=== PATIENT | female | born 1965 | race Caucasian/White ===

== ENCOUNTER 2017-01-13 13:13 | Emergency (ER) | payer OTHER ==
[~2017-01-13 13:13] MED LIST: ACYCLOVIR PO; AMITRYPTYLINE PO; AUGMENTIN875 MG PO; BENTYL20 MG PO; DIAZEPAM PO; DOXYCYCLINE PO; ESTRACE PO; ESTRACE2 MG PO; FIORICET 50-321 EACH PO; FLEXERIL10 MG PO; HYDROCODON-ACE1 EAC5 PO; HYDROCODON-ACE1 EAC7 PO; IBUPROFEN PO; INDERAL LA120 MG PO; LEVAQUIN PO; LODINE XL PO; LORTAB 101 TAB 10/5 PO; MEDROL PO; MEDROL4 MG/DOSE- PO; NORCO 10/325 TA1 TAB PO; PERCOCET5/325 PO; PHENERGAN SUPP25 MG PR; PHENERGAN12.5 MG/SU PR; PHENERGAN25 M1 PO; PHENERGAN25 MG PO; PROPRANOLOL PO; PROZAC PO; PROZAC40 MG PO; ROBAXIN500 MG PO; SEROQUEL50 MG PO; TRAZODONE HCL150 MG PO; VOLTAREN50 MG PO; XANAX0.5 MG PO; ZOFRAN ODT4 MG PO; ZOFRANODT PO
[2017-01-13 13:25] LABS: URINE APPEARANCE CLEAR; URINE BILIRUBIN NEG (NEG); URINE COLOR YELLOW; URINE GLUCOSE NEG (NORM); URINE KETONE NEG (NEG); URINE LEUKOCYTE ESTERASE NEG (NEG); URINE NITRATE NEG (NEG); URINE PROTEIN NEG (NEG); URINE SOURCE CLEAN CATCH; URINE SPECIFIC GRAVITY <=1.005 (1.003-1.035); URINE UROBILINOGEN 0.2 MG/DL (NORM)
[2017-01-13 13:27] LABS: INFLUENZA A NEG (NEG); INFLUENZA B NEG (NEG)
[2017-01-13 13:33] LABS: MICRO INDICATED? NO; URINE BLOOD NEG (NEG)
[2017-02-21] MEDS ORDERED: ABILIFY5 MG PO (20:54)
[2017-04-21] MEDS ORDERED: HYDROCODON-ACE1 EAC7 PO (00:34)
[2017-04-21] MEDS ORDERED: ZOFRAN PO (00:35)
[2017-04-21] MEDS ORDERED: PHENERGAN25 M1 PO (11:33)
[2017-04-21] MEDS ORDERED: SEROQUEL PO (12:40)
[2017-04-21] MEDS ORDERED: PROZAC PO (12:40)
[2017-04-21] MEDS ORDERED: TRAZODONE PO (12:41)
[2017-04-21] MEDS ORDERED: ESTRACE2 M1 PO (20:56)
== END 2017-01-13 13:46 | disposition home or self-care (01) ==
LOC: SED 13:13
PROVIDERS: Physician Assistant
DX: B34.9 Viral infection, unspecified (principal); M54.5 Low back pain; F43.10 Post-traumatic stress disorder, unspecified; F17.200 Nicotine dependence, unspecified, uncomplicated; Z90.710 Acquired absence of both cervix and uterus; Z90.49 Acquired absence of other specified parts of digestive tract
CPT/HCPCS: 81003; 87651; 87804; 99283

== ENCOUNTER 2017-02-21 21:11 | Emergency (ER) | payer OTHER ==
--- NOTE | ~2017-02-21 | CT2 ---
[facility] A Service of [facility] RADIOLOGY TEXT RESULTS PATIENT: SOPHIE WILL LOCATION: SED : 63 UNIT #: [id number] AGE: [address]: Iraj Guardado MD SEX: F ORDER DR: [id number] [place] [id number] E MR#: [id number] Acc #: [id number] NAME: SOPHIE WILL : 1965 SEX: F STUDY DATE/TIME: 02/21/2017 23:06 UNIT: SED ROOM: STUDY DESCRIPTION: CT Abd and Pelv W Cont Attending Physician: Iraj Guardado M.D. Ordering Physician: Iraj Guardado M.D. Primary Care Physician: Paul Cr M.D. MEDICAL IMAGING REPORT This report is preliminary unless electronic signature is present. EXAM CT abdomen and pelvis with contrast DATE 02/21/2017 HISTORY 51-year-old female abdominal pain and cramping with rectal bleeding since last evening. Elevated white blood cell count. Previous appendectomy, hysterectomy, cholecystectomy. COMPARISON CT abdomen and pelvis without contrast 07/04/2016. PROCEDURE 5 mm axial images from lung bases through lesser trochanters after intravenous and enteric contrast administration. Sagittal and coronal reformatted images were obtained. This CT exam was performed with one or more of the following radiation dose reduction techniques: automatic control, adjustment of mA and/or kV according to patient size, and iterative reconstruction. FINDINGS ABDOMEN FINDINGS: Emphysematous changes are present in the lung bases. Some of images through the lung bases and the abdomen are degraded by patient motion. Cholecystectomy. Liver, spleen, pancreas, adrenals and kidneys appear unremarkable. History of appendectomy. No bowel inflammatory change or evidence of high-grade bowel obstruction on this examination. No free air or free fluid or pathologic adenopathy is seen. PELVIS FINDINGS: Urinary bladder, rectum are normal. Hysterectomy changes. [facility] A Service [facility] RADIOLOGY TEXT RESULTS PATIENT: SOPHIE WILL LOCATION: SED : 63 UNIT #: [id number] AGE: [address]: Iraj Guardado MD SEX: F ORDER DR: Advanced loss of disc height at L3-4. No acute or suspicious osseous abnormalities are identified. IMPRESSION 1. No acute findings are seen within the abdomen or pelvis to explain the patient's pain. 2. Cholecystectomy, hysterectomy, appendectomy. 3. Emphysematous changes in the lung bases. Dictated by... Giovana Banks M.D. THIS IS AN ELECTRONICALLY VERIFIED REPORT Giovana Banks M.D. at 02/22/2017 4:20 AM ELI/sean TD: 02/22/2017 03:39 JOB #: [id number] MEDICAL IMAGING REPORT Page 1 of 1
[~2017-02-21 21:11] MED LIST changes: +ABILIFY5 MG PO
[2017-02-21 22:01] LABS: MICRO INDICATED? NO; URINE APPEARANCE CLEAR; URINE BILIRUBIN NEG (NEG); URINE BLOOD NEG (NEG); URINE COLOR YELLOW; URINE GLUCOSE NEG (NORM); URINE KETONE NEG (NEG); URINE LEUKOCYTE ESTERASE NEG (NEG); URINE NITRATE NEG (NEG); URINE PH 5.5 (5-8); URINE PROTEIN NEG (NEG); URINE SOURCE CLEAN CATCH; URINE SPECIFIC GRAVITY <=1.005 (1.003-1.035); URINE UROBILINOGEN 0.2 MG/DL (NORM)
[2017-02-21 22:03] LABS: BASOPHIL# 0.1 X10e3 (0-0.3); BASOPHIL% 0.9 % (0-2.5); EOSINOPHIL# 0.3 X10e3 (0-0.7); EOSINOPHIL% 2.3 % (0.0-7.0); HEMATOCRIT 38.4 % (35.0-45.0); HEMOGLOBIN 12.7 gm/dL (12.0-16.0); LYMPHOCYTE# 4.7 X10e3 (1.0-3.5); MEAN CELL VOLUME 95.5 FL (83-96); MEAN CORPUSCULAR HEMOGLOBIN 31.7 PG (28-34); MEAN CORPUSCULAR HGB CONC 33.2 g/dL (30-36); MEAN PLATELET VOLUME 6.5 FL (6.5-11.5); MONOCYTE# 0.7 X10e3 (0-1.0); MONOCYTE% 5.3 % (3.0-12.0); NEUTROPHIL# 6.7 X10e3 (1.5-7.1); NEUTROPHIL% 53.5 % (40-75); PLATELET COUNT 442 X10e3 (140-420); RED BLOOD COUNT 4.02 X10e (3.90-5.30); RED CELL DISTRIBUTION WIDTH 12.6 % (11.0-15.5); WHITE BLOOD COUNT 12.4 X10e3 (4.0-10.5)
[2017-02-21 22:06] LABS: DIFF IND NO
[2017-02-21 22:11] LABS: INR 0.9; PROTHROMBIN TIME (PATIENT) 10.6 SECONDS (9.5-12.4)
[2017-02-21 22:18] LABS: PARTIAL THROMBOPLASTIN TIME 26.4 SECONDS (25.6-38.1)
[2017-02-21 22:21] LABS: ALBUMIN SERUM 3.8 g/dL (3.5-5.0); BILIRUBIN, DIRECT 0.1 mg/dL (0.0-0.2); BILIRUBIN,INDIRECT 0.2 mg/dL (0.0-0.9); BILIRUBIN,TOTAL 0.3 mg/dL (0.2-2.0); BUN/CREATININE RATIO 18.75; CALCIUM SERUM 8.8 mg/dL (8.4-10.2); CREATININE SERUM 0.8 mg/dL (0.6-1.4); GLOM FILT RATE Estimated 84.2 mL/min (>60); POTASSIUM 3.9 mmol/L (3.5-5.1); PROTEIN TOTAL SERUM 7.5 g/dL (6.0-8.3)
[2017-04-21] MEDS ORDERED: HYDROCODON-ACE1 EAC7 PO (00:34)
[2017-04-21] MEDS ORDERED: ZOFRAN PO (00:35)
[2017-04-21] MEDS ORDERED: PHENERGAN25 M1 PO (11:33)
[2017-04-21] MEDS ORDERED: PROZAC PO (12:40)
[2017-04-21] MEDS ORDERED: SEROQUEL PO (12:40)
[2017-04-21] MEDS ORDERED: TRAZODONE PO (12:41)
[2017-04-21] MEDS ORDERED: ESTRACE2 M1 PO (20:56)
== END 2017-02-22 00:41 | disposition home or self-care (01) ==
LOC: SED 21:11
PROVIDERS: Emergency Medicine
DX: R10.9 Unspecified abdominal pain (principal); R11.0 Nausea; K21.9 Gastro-esophageal reflux disease without esophagitis; J44.9 Chronic obstructive pulmonary disease, unspecified; I73.9 Peripheral vascular disease, unspecified; Z90.49 Acquired absence of other specified parts of digestive tract; Z90.710 Acquired absence of both cervix and uterus; F17.200 Nicotine dependence, unspecified, uncomplicated
CPT/HCPCS: 36415; 74177; 80048; 80076; 81003; 83605; 83690; 85025; 85610; 85730; 87040; 96361; 96372; 96374; 96375; 99284; J0500; J1170; J2270; J2405; Q9967

== ENCOUNTER 2017-03-12 20:04 | Emergency (ER) | payer OTHER ==
--- NOTE | ~2017-03-12 | CR2 ---
[facility] A Service of [facility] RADIOLOGY TEXT RESULTS PATIENT: SOPHIE WILL LOCATION: SED : 63 UNIT #: [id number] AGE: [address]: Akshat Sweet MD SEX: F ORDER DR: [id number] [address] [address] [id number] E MR#: [id number] Acc #: [id number] NAME: SOPHIE WILL : 1965 SEX: F STUDY DATE/TIME: 03/12/2017 22:12 UNIT: SED ROOM: STUDY DESCRIPTION: CR Abdomen Acute Series Attending Physician: Akshat Sweet M.D. Ordering Physician: Akshat Sweet M.D. Primary Care Physician: Paul Cr M.D. MEDICAL IMAGING REPORT This report is preliminary unless electronic signature is present. EXAM Acute abdominal series HISTORY 51-year-old female, abdominal pain, nausea, vomiting. COMPARISON 07/05/2013 FINDINGS PA upright view of the chest demonstrates coarse parenchymal markings suggesting underlying fibrosis or interstitial disease. No acute airspace disease or consolidation, no effusions. No free air noted under the diaphragms. Supine and upright views of the abdomen demonstrates nonobstructive bowel gas pattern. Surgical clips in the right upper quadrant consistent with prior cholecystectomy. No organomegaly. Mild degenerative changes lumbar spine. IMPRESSION 1. Mild hyperinflation and coarse parenchymal changes could reflect underlying emphysema, developing fibrosis. No acute cardiopulmonary abnormality. 2. Nonobstructive bowel gas pattern. Surgical clips in the right upper quadrant from prior cholecystectomy. Dictated by... Octavio Goetz M.D. THIS IS AN ELECTRONICALLY VERIFIED REPORT Octavio Goetz M.D. at 03/13/2017 2:05 PM JMS/psc [facility] A Service [facility] RADIOLOGY TEXT RESULTS PATIENT: SOPHIE WILL LOCATION: SED : 63 UNIT #: [id number] AGE: [address]: Akshat Sweet MD SEX: F ORDER DR: TD: 03/12/2017 23:23 JOB #: [id number] MEDICAL IMAGING REPORT Page 1 of 1
[2017-03-12 21:05] LABS: BASOPHIL# 0.1 X10e3 (0-0.3); BASOPHIL% 0.9 % (0-2.5); EOSINOPHIL# 0.3 X10e3 (0-0.7); EOSINOPHIL% 1.6 % (0.0-7.0); HEMATOCRIT 36.8 % (35.0-45.0); HEMOGLOBIN 12.4 gm/dL (12.0-16.0); LYMPHOCYTE% 26.2 % (17.0-45.0); MEAN CELL VOLUME 96.1 FL (83-96); MEAN CORPUSCULAR HEMOGLOBIN 32.4 PG (28-34); MEAN CORPUSCULAR HGB CONC 33.8 g/dL (30-36); MEAN PLATELET VOLUME 6.7 FL (6.5-11.5); MONOCYTE# 0.8 X10e3 (0-1.0); NEUTROPHIL# 10.2 X10e3 (1.5-7.1); NEUTROPHIL% 66.3 % (40-75); PLATELET COUNT 336 X10e3 (140-420); RED BLOOD COUNT 3.83 X10e (3.90-5.30); RED CELL DISTRIBUTION WIDTH 13.4 % (11.0-15.5); WHITE BLOOD COUNT 15.4 X10e3 (4.0-10.5)
[2017-03-12 21:06] LABS: DIFF IND NO
[2017-03-12 21:22] LABS: ALBUMIN SERUM 3.7 g/dL (3.5-5.0); BILIRUBIN, DIRECT 0.3 mg/dL (0.0-0.2); BILIRUBIN,INDIRECT 0.8 mg/dL (0.0-0.9); BILIRUBIN,TOTAL 1.1 mg/dL (0.2-2.0); BUN/CREATININE RATIO 8.75; CALCIUM SERUM 8.9 mg/dL (8.4-10.2); CREATININE SERUM 0.8 mg/dL (0.6-1.4); GLOM FILT RATE Estimated 84.2 mL/min (>60); POTASSIUM 3.7 mmol/L (3.5-5.1); PROTEIN TOTAL SERUM 7.2 g/dL (6.0-8.3)
[2017-04-21] MEDS ORDERED: HYDROCODON-ACE1 EAC7 PO (00:34)
[2017-04-21] MEDS ORDERED: ZOFRAN PO (00:35)
[2017-04-21] MEDS ORDERED: PHENERGAN25 M1 PO (11:33)
[2017-04-21] MEDS ORDERED: SEROQUEL PO (12:40)
[2017-04-21] MEDS ORDERED: PROZAC PO (12:40)
[2017-04-21] MEDS ORDERED: TRAZODONE PO (12:41)
[2017-04-21] MEDS ORDERED: ESTRACE2 M1 PO (20:56)
== END 2017-03-12 23:40 | disposition home or self-care (01) ==
LOC: SED 20:04
PROVIDERS: Emergency Medicine
DX: K58.9 Irritable bowel syndrome, unspecified (principal); F32.9 Major depressive disorder, single episode, unspecified; F17.200 Nicotine dependence, unspecified, uncomplicated; Z90.49 Acquired absence of other specified parts of digestive tract; Z90.710 Acquired absence of both cervix and uterus; Z88.8 Allergy status to other drugs, medicaments and biological substances; Z79.899 Other long term (current) drug therapy
CPT/HCPCS: 36415; 74022; 80048; 80076; 83690; 85025; 86677; 96361; 96374; 96375; 96376; 99284; J1170; J1200; J1885; J2405; J2765

== ENCOUNTER → 2017-04-02 | Day surgery (SDC) | payer OTHER ==
[~2017-04-02] MED LIST changes: +ACETAMINOPHEN PO; +DILAUDID4 MG PO; +ESTRACE2 M1 PO; +FAMVIR500 MG PO; +NILSTAT PO; +SEROQUEL PO; +TRAZODONE PO; +ZOFRAN PO
--- NOTE | ~2017-04-02 | OR ---
Unit #: [id number] #: [id number] Patient: SOPHIE WILL [id number] [address] [address] [id number] O MR#: [id number] NAME: SOPHIE WILL ROOM: Date of Procedure: 04/02/2017 Admission Date: 04/02/2017 Surgeon: John Scales M.D. : 1965 Attending Physician: John Scales M.D. Primary Care Physician: Paul Cr M.D. OPERATIVE REPORT PREOPERATIVE DIAGNOSES 1. Epigastric pain. 2. Intermittent rectal bleeding. POSTOPERATIVE DIAGNOSES 1. Epigastric pain. 2. Intermittent rectal bleeding. PROCEDURES PERFORMED 1. Esophagogastroduodenoscopy. 2. Biopsy of antrum for Helicobacter pylori testing. 3. Colonoscopy to cecum. 4. Multiple biopsies of rectal mass. ANESTHESIA Monitored anesthesia care. FINDINGS The patient was found to have mild gastritis as well as a very mild Schatzki's ring. On colonoscopy, the patient had normal colon other than a small ulcerated rectal neoplasm in the posterior midline, just above the anal canal. SPECIMENS Sent to pathology. COMPLICATIONS None apparent. CONDITION The patient tolerated the procedure well. INDICATIONS FOR PROCEDURE The patient is a 52-year-old, white female, whose has some intermittent mid abdominal pain as well as intermittent rectal bleeding. She presents at this time for evaluation by upper as well as lower endoscopy. DESCRIPTION OF PROCEDURE After obtaining informed consent, the patient was brought to the endoscopy suite and after adequate monitored anesthesia care, had the endoscope placed through the mouth into the upper esophagus under direct vision. It was advanced to the second portion of the duodenum without difficulty and Unit #: [id number] #: [id number] Patient: SOPHIE WILL with the lumen always in view. The duodenum was normal as was the duodenal bulb. The pylorus opened normally. There was some mild distal gastritis present and a biopsy was obtained for Helicobacter pylori testing. On retroflexion back to the GE junction, there was a lax GE junction, but no other abnormalities were found in the proximal third, middle third, or incisura. On pulling back above the GE junction, there was no stenosis, stricture, or neoplasm seen. There was some very mild Schatzki's ring present, but no other abnormalities were seen. The remaining portion of the esophagus was within normal limits. Laryngeal structures were grossly normal as viewed from above. At this point in time, the digital examination was performed of the anus and rectum. There was no palpable abnormality in the posterior midline. It was suspicious for being a small rectal mass. The colonoscope was then placed through the anus, advanced to the level of the cecum without difficulty with the lumen always in view. The ileocecal valve and cecum were normal. The ascending colon was normal as was the hepatic flexure, transverse colon, splenic flexure, descending colon, sigmoid colon, and rectum. On retroflexing in the rectum to the anorectal junction, the patient was found to have just above the anal verge, a small ulcerated neoplasm. On pulling back to the anal canal, it was visualized again. Multiple biopsies were obtained. The patient tolerated the procedure well. The scope was removed. The patient went from the endoscopy suite to recovery area in stable condition. RECOMMENDATIONS High-fiber diet, lots of liquids, tucks or wipes p.r.n. Gastroesophageal reflux sheet given. Call Thursday for pathology report. Dictated by... Lawrence Adams/molly TD: 04/03/2017 03:25 JOB #: [id number] CC: [facility] OPERATIVE REPORT Page 1 of 1 X John Scales MD X PROCEDURE OPERATIVE NOTE
== END | disposition home or self-care (01) ==
LOC: COPS 11:06
DX: K29.70 Gastritis, unspecified, without bleeding (principal); K22.2 Esophageal obstruction; D49.0 Neoplasm of unspecified behavior of digestive system; K62.5 Hemorrhage of anus and rectum; F17.200 Nicotine dependence, unspecified, uncomplicated
CPT/HCPCS: 87077; 88305; J2250

== ENCOUNTER 2017-04-09 15:35 | Emergency (ER) | payer OTHER ==
[~2017-04-09 15:35] MED LIST changes: -ACETAMINOPHEN PO; -DILAUDID4 MG PO; -ESTRACE2 M1 PO; -FAMVIR500 MG PO; -NILSTAT PO; -SEROQUEL PO; -TRAZODONE PO; -ZOFRAN PO
[2017-04-09 16:30] LABS: URINE SOURCE CLEAN CATCH
[2017-04-09 16:34] LABS: BASOPHIL# 0.1 X10e3 (0-0.3); BASOPHIL% 0.8 % (0-2.5); EOSINOPHIL# 0.2 X10e3 (0-0.7); EOSINOPHIL% 1.8 % (0.0-7.0); HEMOGLOBIN 13.6 gm/dL (12.0-16.0); LYMPHOCYTE# 3.7 X10e3 (1.0-3.5); LYMPHOCYTE% 37.2 % (17.0-45.0); MEAN CELL VOLUME 96.2 FL (83-96); MEAN CORPUSCULAR HEMOGLOBIN 32.7 PG (28-34); MEAN PLATELET VOLUME 6.5 FL (6.5-11.5); MONOCYTE# 0.5 X10e3 (0-1.0); MONOCYTE% 5.4 % (3.0-12.0); NEUTROPHIL# 5.4 X10e3 (1.5-7.1); NEUTROPHIL% 54.8 % (40-75); PLATELET COUNT 390 X10e3 (140-420); RED BLOOD COUNT 4.16 X10e (3.90-5.30); RED CELL DISTRIBUTION WIDTH 12.9 % (11.0-15.5); WHITE BLOOD COUNT 9.8 X10e3 (4.0-10.5)
[2017-04-09 16:40] LABS: DIFF IND NO
[2017-04-09 16:44] LABS: URINE APPEARANCE CLEAR; URINE BILIRUBIN NEG (NEG); URINE BLOOD TRACE-INTACT (NEG); URINE COLOR YELLOW; URINE GLUCOSE NEG (NORM); URINE KETONE NEG (NEG); URINE LEUKOCYTE ESTERASE NEG (NEG); URINE NITRATE NEG (NEG); URINE PH 5.5 (5-8); URINE PROTEIN NEG (NEG); URINE SPECIFIC GRAVITY <=1.005 (1.003-1.035); URINE UROBILINOGEN 0.2 MG/DL (NORM)
[2017-04-09 16:45] LABS: MICRO INDICATED? YES
[2017-04-09 16:48] LABS: CULTURE INDICATED? NO; URINE BACTERIA NEG (NEG); URINE RBC 0-2 /[HPF] (0-2); URINE WBC NEG /[HPF] (0-5)
[2017-04-09 16:59] LABS: ALBUMIN SERUM 4.1 g/dL (3.5-5.0); ALKALINE PHOSPHATASE 68 U/L (32-92); ALT (SGPT) 15 U/L (10-40); AMYLASE 42 U/L (0-46); AST (SGOT) 20 U/L (10-42); BILIRUBIN,TOTAL 0.1 mg/dL (0.2-2.0); BLOOD UREA NITROGEN 10 mg/dL (9-23); CALCIUM SERUM 9.3 mg/dL (8.4-10.2); CARBON DIOXIDE 25 mmol/L (22-31); CHLORIDE 101 mmol/L (100-111); CREATININE SERUM 0.8 mg/dL (0.6-1.4); GLOM FILT RATE Estimated 83.7 mL/min (>60); GLUCOSE FASTING 61 mg/dL (70-110); LIPASE 46 U/L (22-51); POTASSIUM 4.1 mmol/L (3.5-5.1); PROTEIN TOTAL SERUM 7.6 g/dL (6.0-8.3); SODIUM 134 mmol/L (135-145)
[2017-04-09 17:02] LABS: BILIRUBIN, DIRECT <0.1 mg/dL (0.0-0.2)
[2017-04-21] MEDS ORDERED: HYDROCODON-ACE1 EAC7 PO (00:34)
[2017-04-21] MEDS ORDERED: ZOFRAN PO (00:35)
[2017-04-21] MEDS ORDERED: PHENERGAN25 M1 PO (11:33)
[2017-04-21] MEDS ORDERED: PROZAC PO (12:40)
[2017-04-21] MEDS ORDERED: SEROQUEL PO (12:40)
[2017-04-21] MEDS ORDERED: TRAZODONE PO (12:41)
[2017-04-21] MEDS ORDERED: ESTRACE2 M1 PO (20:56)
== END 2017-04-09 18:40 | disposition home or self-care (01) ==
LOC: SED 15:35
PROVIDERS: Nurse Practitioner Family
DX: R10.84 Generalized abdominal pain (principal); R11.2 Nausea with vomiting, unspecified; R19.7 Diarrhea, unspecified; F43.10 Post-traumatic stress disorder, unspecified; F17.210 Nicotine dependence, cigarettes, uncomplicated; Z90.710 Acquired absence of both cervix and uterus; Z90.49 Acquired absence of other specified parts of digestive tract; Z79.899 Other long term (current) drug therapy; Z88.8 Allergy status to other drugs, medicaments and biological substances
CPT/HCPCS: 80048; 80076; 81003; 82150; 82947; 83690; 85025; 96374; 96375; 99284; J1885; J2270; J2405; J2550

== ENCOUNTER → 2017-04-21 | Outpatient (CLI) | payer OTHER ==
[~2017-04-21] MED LIST changes: +ACETAMINOPHEN PO; +DILAUDID4 MG PO; +ESTRACE2 M1 PO; +FAMVIR500 MG PO; +NILSTAT PO; +SEROQUEL PO; +TRAZODONE PO; +ZOFRAN PO
--- NOTE | ~2017-04-21 | XA91 ---
[facility] A Service of [facility] RADIOLOGY TEXT RESULTS PATIENT: SOPHIE ARREOLA LOCATION: CIVR : 61 UNIT #: [id number] AGE: [address]: Tyrone Looney MD SEX: F ORDER DR: [id number] [facility] [address]. [place], [place] [address] [id number] O MR#: [id number] Acc #: [id number] NAME: SOPHIE ARREOLA : 1965 SEX: F STUDY DATE/TIME: 04/21/2017 9:24 UNIT: CIVR ROOM: STUDY DESCRIPTION: XA CVC Tunneled W Port Attending Physician: Tyrone Looney M.D. Referring Physician: Tyrone Looney M.D. Ordering Physician: Tyrone Looney M.D. Primary Care Physician: Paul Cr M.D. MEDICAL IMAGING REPORT This report is preliminary unless electronic signature is present EXAM MediPort placement under ultrasound and fluoroscopy. HISTORY Recently diagnosed rectal carcinoma. Procedure, attendant risks and options were discussed at length with Ms. Arreola. She understands and wishes to proceed. Informed written consent was obtained. PROCEDURE The patient was placed in the angio-suite in the supine position. Ultrasound examination of the right neck shows a patent right internal jugular vein. Patient was then prepped over the right neck and anterior chest with chlorhexidine solution and sterilely draped. Maximal sterile barrier technique was utilized including caps, masks, gowns, gloves and shoe covers. Conscious sedation was utilized consisting of IV Versed and fentanyl. The patient was monitored by the IR nurse during the entire procedure. Ultrasound examination was again utilized for localization of the vein and the skin over the right internal jugular vein and subcutaneous tissues were anesthetized with 1% Xylocaine. A micropuncture was performed of the right IJ under direct ultrasound visualization and guidance and an 0.018 wire was passed followed by placement of a micropuncture set and an 0.035 wire. At this point, an introducer sheath was then placed and flushed with saline. Attention was turned to the right anterior chest wall. A horizontal incision was made about 2 fingerbreadths below the clavicle and a pocket bluntly dilated. Port was tested to fit within the pocket and the pocket subsequently flushed. The port was then stitched to the deep fascia with 2 3-0 Vicryl sutures. Tunnel was passed to the right IJ site. The catheter was trimmed to 15 cm and deployed with the tip in the SVC. The port was then accessed and flushed appropriately. The right IJ site [facility]. [facility] A Service of [facility] RADIOLOGY TEXT RESULTS PATIENT: SOPHIE ARREOLA [id number] [birth year] UNIT #: [id number] AGE: [address]: Tyrone Looney MD SEX: F ORDER DR: was subsequently closed with a single 3-0 Vicryl suture in the subcutaneous tissues. The deep fascia was closed over the port site with 3-0 interrupted Vicryl suture. Dermabond was placed over both the right IJ and the port site. Patient was subsequently taken to the short-stay unit where she will be monitored for 1 hour prior to discharge. Final spot radiograph was obtained documenting placement. Permanent sound images recorded. Total fluoroscopy time recorded was 0.7 minutes. Total exposure 4 mGy air kerma standard. CONCLUSION 1. Successful placement of right-sided MediPort with the tip in the SVC under ultrasound and fluoroscopy. Dictated by... Iraj James M.D. THIS IS AN ELECTRONICALLY VERIFIED REPORT Iraj James M.D. at 04/23/2017 7:24 AM JESSICA/jose TD: 04/21/2017 19:25 JOB #: [id number] MEDICAL IMAGING REPORT Page 1 of 1 COPY
[2017-04-21 08:07] LABS: HEMATOCRIT 41.5 % (35.0-45.0); HEMOGLOBIN 13.6 gm/dL (12.0-16.0); MEAN CORPUSCULAR HEMOGLOBIN 32.1 PG (28-34); MEAN CORPUSCULAR HGB CONC 32.8 g/dL (30-36); MEAN PLATELET VOLUME 6.6 FL (6.5-11.5); RED BLOOD COUNT 4.23 X10e (3.90-5.30); RED CELL DISTRIBUTION WIDTH 13.7 % (11.0-15.5); WHITE BLOOD COUNT 8.5 X10e3 (4.0-10.5)
[2017-04-21 08:23] LABS: INR 0.9; PARTIAL THROMBOPLASTIN TIME 26.6 SECONDS (23.5-31.3); PROTHROMBIN TIME (PATIENT) 9.8 SECONDS (10.0-11.7)
== END | disposition home or self-care (01) ==
LOC: CIVR 07:19
PROVIDERS: Internal Medicine Hematology & Oncology
DX: C21.1 Malignant neoplasm of anal canal (principal); Z45.2 Encounter for adjustment and management of vascular access device; F43.10 Post-traumatic stress disorder, unspecified; F17.200 Nicotine dependence, unspecified, uncomplicated; M54.5 Low back pain; Z79.899 Other long term (current) drug therapy; Z79.891 Long term (current) use of opiate analgesic; Z80.3 Family history of malignant neoplasm of breast; Z87.09 Personal history of other diseases of the respiratory system; Z92.23 Personal history of estrogen therapy; Z90.710 Acquired absence of both cervix and uterus; Z90.49 Acquired absence of other specified parts of digestive tract; Z88.8 Allergy status to other drugs, medicaments and biological substances
CPT/HCPCS: 36415; 76937; 77001; 85027; 85610; 85730; C1788; C1894; J0690; J1170; J1642; J2250; J2405; J3010

== ENCOUNTER 2017-05-06 14:18 | Observation (INO) | payer OTHER ==
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
[~2017-05-06 14:18] MED LIST changes: -ACETAMINOPHEN PO; -DILAUDID4 MG PO; -FAMVIR500 MG PO; -NILSTAT PO
[2017-05-06 16:02] LABS: HEMATOCRIT 30.5 % (35.0-45.0); HEMOGLOBIN 10.1 gm/dL (12.0-16.0); MEAN CELL VOLUME 97.5 FL (83-96); MEAN CORPUSCULAR HEMOGLOBIN 32.1 PG (28-34); MEAN PLATELET VOLUME 6.9 FL (6.5-11.5); RED BLOOD COUNT 3.13 X10e (3.90-5.30); RED CELL DISTRIBUTION WIDTH 13.1 % (11.0-15.5); WHITE BLOOD COUNT 3.2 X10e3 (4.0-10.5)
[2017-05-06 16:29] LABS: ALBUMIN SERUM 3.2 g/dL (3.5-5.0); ALKALINE PHOSPHATASE 65 U/L (32-92); ALT (SGPT) 27 U/L (10-40); AST (SGOT) 21 U/L (10-42); BILIRUBIN,TOTAL <0.1 mg/dL (0.2-2.0); BLOOD UREA NITROGEN 14 mg/dL (9-23); CALCIUM SERUM 8.2 mg/dL (8.4-10.2); CARBON DIOXIDE 25 mmol/L (22-31); CHLORIDE 105 mmol/L (100-111); CREATININE SERUM 0.8 mg/dL (0.6-1.4); GLOM FILT RATE Estimated 83.7 mL/min (>60); GLUCOSE FASTING 59 mg/dL (70-110); POTASSIUM 3.7 mmol/L (3.5-5.1); PROTEIN TOTAL SERUM 5.9 g/dL (6.0-8.3); SODIUM 134 mmol/L (135-145)
[2017-05-07 06:23] LABS: HEMATOCRIT 29.4 % (35.0-45.0); HEMOGLOBIN 9.5 gm/dL (12.0-16.0); MEAN CELL VOLUME 97.2 FL (83-96); MEAN CORPUSCULAR HEMOGLOBIN 31.4 PG (28-34); MEAN CORPUSCULAR HGB CONC 32.3 g/dL (30-36); MEAN PLATELET VOLUME 6.9 FL (6.5-11.5); RED BLOOD COUNT 3.03 X10e (3.90-5.30); RED CELL DISTRIBUTION WIDTH 12.8 % (11.0-15.5); WHITE BLOOD COUNT 2.5 X10e3 (4.0-10.5)
[2017-05-07 06:49] LABS: ALBUMIN SERUM 2.9 g/dL (3.5-5.0); BILIRUBIN,TOTAL 0.4 mg/dL (0.2-2.0); BUN/CREATININE RATIO 14.28; CALCIUM SERUM 8.1 mg/dL (8.4-10.2); CREATININE SERUM 0.7 mg/dL (0.6-1.4); GLOM FILT RATE Estimated 98.2 mL/min (>60); MAGNESIUM 1.9 mg/dL (1.6-3.0); PHOSPHOROUS 3.8 mg/dL (2.5-4.6); POTASSIUM 4.4 mmol/L (3.5-5.1); PROTEIN TOTAL SERUM 5.4 g/dL (6.0-8.3)
[2017-05-07] MEDS ORDERED: FAMVIR500 MG PO (11:01)
== END 2017-05-07 15:21 | disposition home or self-care (01) | DRG 866 ==
LOC: C3A PCU 14:18 → C2A 14:18 → C3A PCU 15:08 → C2A 05-07 06:29
PROVIDERS: Internal Medicine Hematology & Oncology
DX: B02.8 Zoster with other complications (principal); C20 Malignant neoplasm of rectum; F17.200 Nicotine dependence, unspecified, uncomplicated; E86.0 Dehydration; R11.2 Nausea with vomiting, unspecified
CPT/HCPCS: 80053; 81003; 83735; 84100; 85027; 96372; 96374; 96375; 96376; G0378; J0133; J1170; J1447; J1642; J1650; J2405

== ENCOUNTER 2017-05-25 15:10 | Emergency (ER) | payer OTHER ==
[~2017-05-25 15:10] MED LIST changes: +FAMVIR500 MG PO
[2017-05-25] MEDS ORDERED: DILAUDID4 MG PO (15:43)
== END 2017-05-25 15:20 | disposition left against medical advice (07) ==
LOC: CED 15:10
DX: Z53.21 Procedure and treatment not carried out due to patient leaving prior to being seen by health care provider (principal)

== ENCOUNTER 2017-05-25 15:36 | Emergency (ER) | payer OTHER ==
[2017-05-25] MEDS ORDERED: DILAUDID4 MG PO (15:43)
[2017-05-25 16:23] LABS: URINE SOURCE CLEAN CATCH
[2017-05-25 16:26] LABS: URINE APPEARANCE CLEAR; URINE BILIRUBIN NEG (NEG); URINE BLOOD TRACE-INTACT (NEG); URINE COLOR YELLOW; URINE GLUCOSE NEG (NORM); URINE KETONE NEG (NEG); URINE LEUKOCYTE ESTERASE NEG (NEG); URINE NITRATE NEG (NEG); URINE PH 5.5 (5-8); URINE PROTEIN NEG (NEG); URINE SPECIFIC GRAVITY <=1.005 (1.003-1.035); URINE UROBILINOGEN 0.2 MG/DL (NORM)
[2017-05-25 16:27] LABS: BASOPHIL% 0.7 % (0-2.5); EOSINOPHIL# 0.8 X10e3 (0-0.7); HEMATOCRIT 37.2 % (35.0-45.0); HEMOGLOBIN 12.4 gm/dL (12.0-16.0); LYMPHOCYTE# 0.5 X10e3 (1.0-3.5); LYMPHOCYTE% 11.8 % (17.0-45.0); MEAN CORPUSCULAR HEMOGLOBIN 32.1 PG (28-34); MEAN CORPUSCULAR HGB CONC 33.4 g/dL (30-36); MEAN PLATELET VOLUME 6.8 FL (6.5-11.5); MONOCYTE# 0.5 X10e3 (0-1.0); MONOCYTE% 12.5 % (3.0-12.0); NEUTROPHIL# 2.3 X10e3 (1.5-7.1); PLATELET COUNT 417 X10e3 (140-420); RED BLOOD COUNT 3.88 X10e (3.90-5.30); RED CELL DISTRIBUTION WIDTH 13.5 % (11.0-15.5); WHITE BLOOD COUNT 4.2 X10e3 (4.0-10.5)
[2017-05-25 16:29] LABS: DIFF IND NO
[2017-05-25 16:30] LABS: MICRO INDICATED? YES
[2017-05-25 16:32] LABS: CULTURE INDICATED? YES; URINE BACTERIA 1+ (NEG); URINE RBC 0-2 /[HPF] (0-2); URINE SQUAMOUS EPITHELIAL CELL OCCAS /[HPF]
[2017-05-25 16:58] LABS: ALBUMIN SERUM 3.8 g/dL (3.5-5.0); ALKALINE PHOSPHATASE 55 U/L (32-92); ALT (SGPT) 17 U/L (10-40); AST (SGOT) 21 U/L (10-42); BILIRUBIN, DIRECT <0.1 mg/dL (0.0-0.2); BILIRUBIN,INDIRECT 0.1 mg/dL (0.0-0.9); BILIRUBIN,TOTAL 0.2 mg/dL (0.2-2.0); BLOOD UREA NITROGEN 7 mg/dL (9-23); BUN/CREATININE RATIO 11.66; CALCIUM SERUM 8.7 mg/dL (8.4-10.2); CARBON DIOXIDE 26 mmol/L (22-31); CHLORIDE 103 mmol/L (100-111); CREATININE SERUM 0.6 mg/dL (0.6-1.4); GLOM FILT RATE Estimated 103.3 mL/min (>60); GLUCOSE FASTING 83 mg/dL (70-110); POTASSIUM 3.1 mmol/L (3.5-5.1); PROTEIN TOTAL SERUM 7.1 g/dL (6.0-8.3); SODIUM 135 mmol/L (135-145)
== END 2017-05-25 17:40 | disposition home or self-care (01) ==
LOC: SED 15:36
PROVIDERS: Emergency Medicine
DX: R11.2 Nausea with vomiting, unspecified (principal); R10.84 Generalized abdominal pain; R19.7 Diarrhea, unspecified; F32.9 Major depressive disorder, single episode, unspecified; Z85.048 Personal history of other malignant neoplasm of rectum, rectosigmoid junction, and anus; Z90.49 Acquired absence of other specified parts of digestive tract; Z90.710 Acquired absence of both cervix and uterus; Z79.899 Other long term (current) drug therapy; Z88.8 Allergy status to other drugs, medicaments and biological substances
CPT/HCPCS: 36415; 80048; 80076; 81003; 85025; 87086; 96361; 96374; 96375; 96376; 99284; J1170; J2405; J2765

== ENCOUNTER 2017-06-06 16:38 | Observation (INO) | payer OTHER ==
[~2017-06-06] VITALS: Ht 160 cm; Wt 50.8 kg
--- NOTE | ~2017-06-06 | DS ---
Unit #: [id number] #: [id number] Patient: SOPHIE WILL [id number] [address] [address] [id number] I MR#: [id number] NAME: SOPHIE WILL ROOM: 57 Age: 52 Sex: F Admission Date: 06/07/2017 : 1965 Discharge Date: 06/09/2017 Attending Physician: Yi Kohli M.D. Primary Care Physician: Pema Torres M.D. DISCHARGE SUMMARY REASON FOR ADMISSION Mouth pain, diarrhea, pelvic pain. HISTORY OF PRESENT ILLNESS/HOSPITAL COURSE 52-year-old female, recent diagnosis of rectal carcinoma under the care of Dr. Looney, undergoing chemoradiation. She presented with abdominal pain and/or diarrhea. She also presented secondary to mouth pain and/or difficulty with swallowing. She was seen and evaluated in the emergency room, placed on telemetry floor. Appropriate pain medications were initiated. Venita's Magic Mouthwash and Nystatin was also initiated. Consultation was placed to Dr. Looney and mini for evaluation. From their standpoint, the patient was clinically stable for discharge. Blood cultures were ascertained, otherwise negative. CBC showed a white count of 6.8, hemoglobin of 9.5. BMP was relatively unremarkable. She did have a low grade temperature spike on two different occasions of 100.3 and 100.1. After review and discussion it was felt likely to be nonspecific in nature but no further intervention was recommended from an oncology standpoint. At this point in time, patient will be discharged home in stable condition with appropriate outpatient followup with Dr. Looney and associates. FINAL DISCHARGE DIAGNOSES 1. Probable chemoradiation mucositis. 2. Intractable abdominal pain, now improved. 3. Diarrhea, likely secondary to radiation, improving. 4. Rectal carcinoma, recent diagnosis. 5. Failure to thrive/malnutrition, likely secondary to primary carcinoma. 6. Anxiety/depression. 7. Insomnia. FINAL DISCHARGE MEDICATIONS 1. Prozac 80 mg p.o. q. a.m. 2. Trazodone 200 mg p.o. q. h.s. 3. Zofran 4 mg p.o. q.8 p.r.n. 4. Phenergan 25 mg p.o. daily p.r.n. 5. Estrace 2 mg p.o. daily. 6. Redding 5/325, one tablet p.o. q.6 p.r.n., home medication. 7. Dilaudid 8 mg p.o. q.6 p.r.n., again home medication. No new prescription given. 8. Venita's Magic Mouthwash 5-10 mL swish, gargle, spit q.6 hours p.r.n. mouth pain, 300 mL prescription given. Unit #: [id number] #: [id number] Patient: SOPHIE WILL DISCHARGE CONDITION Stable. DISCHARGE DISPOSITION Home. Dictated by... Lawrence Hammond/kelsey TD: 06/11/2017 07:52 JOB #: [id number] DISCHARGE SUMMARY Page 1 of 1 X Yi Kohli MD X DISCHARGE SUMMARY
--- NOTE | ~2017-06-06 | CO ---
Unit #: [id number] #: [id number] Patient: SOPHIE WILL [id number] [address] [place], [place] [address] [id number] I MR#: [id number] NAME: SOPHIE WILL ROOM: 575 Age: 52 Sex: F Admission Date: 06/07/2017 : 1965 Attending Physician: Elliot Martin M.D. Primary Care Physician: Pema Torres M.D. Consultation Date: 06/07/2017 CONSULT[address] This is Dr. Looney's patient. CHIEF COMPLAINT Anal cancer, completed chemo and radiation, comes with nausea, vomiting, and uncontrolled pain. HISTORY OF PRESENT ILLNESS This is a 52-year-old female who was diagnosed with anal cancer during March 2017. Patient had a PET scan on April 13, 2017, which showed local disease with lymphadenopathy. The lesions in the lungs are nonspecific. Patient received concurrent chemo and radiation. Chemotherapy included 5-FU and mitomycin. She has completed radiation. The last dose of chemo was given on June 05, 2017. Patient came with nausea, vomiting, diarrhea, abdominal pain, and significant mucositis. She is receiving pain medication, IV fluids, and Venita's Magic Mouthwash. She is feeling better. Her CBC shows a WBC of 8.4, hemoglobin 9.3, MCV 96, and platelets 294,000. Creatinine is 0.7 and LFTs are normal. REVIEW OF SYSTEMS CONSTITUTIONAL: No fever, no chills, no sweats, no weight loss. EYES: No visual symptoms. EARS, NOSE AND THROAT: There is no runny nose or sore throat or difficulty hearing. CARDIOVASCULAR: No chest pain. No shortness of breath. No palpitations. No orthopnea. No PND. RESPIRATORY: No cough. No wheezing. No hemoptysis. GASTROINTESTINAL: As mentioned above. GENITOURINARY: No urinary frequency, hesitancy or urgency. No blood in the urine. MUSCULOSKELETAL: No muscle or joint pain. NEUROLOGIC: No headache. No numbness or tingling. No weakness. No seizure. PSYCHIATRIC: No anxiety, depression or mood disturbance. ENDOCRINE: No excessive urination or thirst. DERMATOLOGIC: No rash or change in the skin. ALLERGIC/IMMUNOLOGIC: No symptoms. HEMATOLOGIC/LYMPHATIC: Denies any symptoms. PAST MEDICAL HISTORY Anal cancer, completed chemo and radiation last week. Unit #: [id number] #: [id number] Patient: SOPHIE WILL PAST SURGICAL HISTORY 1. Hysterectomy. 2. Cholecystectomy. 3. Tonsillectomy. ALLERGIES Compazine and Imitrex. SOCIAL HISTORY Patient has smoking half a pack per day for 20 years. Denies alcohol abuse. She works for [employer]. REASON FOR HOSPITALIZATION Sister with breast cancer at age of 52. Mother with breast cancer and colon cancer in her 70s. CURRENT MEDICATIONS 1. Desyrel. 2. Dilaudid. 3. Nystatin. 4. Prozac. 5. Lortab. 6. Potassium. PHYSICAL EXAMINATION VITAL SIGNS: Afebrile, pulse 86, respiratory rate 17, oxygen saturation on 2 liters 97%, and blood pressure 109/83. Weight 110 pounds. GENERAL: Patient is comfortable. ECOG is 0. The patient is pleasant. HEENT: Moist mucosa. Pupils equally reactive to light. Extraocular muscles intact. Sclerae anicteric. No obvious bleeding from nasal mucosa or oral mucosa. Scalp normal. Hearing normal. NECK: No JVD. No lymphadenopathy. LYMPHATIC/HEMATOLOGIC: There is no palpable adenopathy in the neck, axilla or inguinal area. CARDIOVASCULAR: S1, S2. Regular rate and rhythm. No S3 or S4. RESPIRATORY: Chest symmetrical, normal. Clear to auscultation bilaterally. No wheezes, no rales, no rhonchi. No dullness to percussion. ABDOMEN/GASTROINTESTINAL: Abdomen is soft, nontender, nondistended. No hepatosplenomegaly. EXTREMITIES: There is no clubbing, no cyanosis, no edema. No varicose veins. NEUROLOGICAL: Patient is alert, awake and oriented x3. Cranial nerves II-XII are intact. Sensory grossly intact. Motor is 4/5 in all four extremities. Gait is normal. Station is normal. Language is normal. Memory is normal. DTRs +2 in all four extremities. MUSCULOSKELETAL: No joint swelling. No bony tenderness. No muscle tenderness. SKIN: No petechiae, no rash, no ecchymosis. PSYCHIATRIC: No anxiety. No delusions or hallucinations. There is no agitation. Eye contact is normal. Affect is appropriate. There is no flight of ideas. DIAGNOSTIC STUDIES LABORATORY: As mentioned above. ASSESSMENT AND PLAN This is a 52-year-old female who has the following active issues: 1. Anal cancer. Patient has local disease with lymphadenopathy. She Unit #: [id number] #: [id number] Patient: SOPHIE WILL just completed chemotherapy and radiation. Chemotherapy included 5-FU and mitomycin. In the future, will do an MRI of the pelvis to evaluate the response. Most likely, she has had good response. 2. Gastrointestinal. Patient has nausea, vomiting, and mucositis. Patient also has dermatosis around the zone of radiation. We are giving her pain medication and nausea medication, and she is feeling better. 3. Anemia which is mild. I will check iron studies. 1. Dictated by... Lawrence Ordaz/vaishali TD: 06/07/2017 21:50 JOB #: [id number] CONSULTATION REPORT Page 1 of 1 X Ace Gracia MD X CONSULTATION REPORT
--- NOTE | ~2017-06-06 | CR72 ---
[facility] A Service of [facility] RADIOLOGY TEXT RESULTS PATIENT: SOPHIE WILL LOCATION: [facility] 575-01 : [birth year] UNIT #: [id number] AGE: [address]: Elliot Martin MD SEX: F ORDER DR: [id number] [place] [id number] E MR#: [id number] Acc #: [id number] NAME: SOPHIE WILL : 1965 SEX: F STUDY DATE/TIME: 06/06/2017 19:59 UNIT: SED ROOM: STUDY DESCRIPTION: CR Chest Single View Portable Attending Physician: Mary Wheat M.D. Ordering Physician: Mary Wheat M.D. Primary Care Physician: Pema Torres M.D. MEDICAL IMAGING REPORT This report is preliminary unless electronic signature is present. EXAM Single view chest INDICATIONS Shortness of air. Recent chemotherapy this month. Nausea, vomiting and diarrhea. Rectal carcinoma. COMPARISON Single portable AP view of the chest compared to PET CT 04/13/2017. FINDINGS There is a right chest wall port. Heart and mediastinal contours are normal. No focal consolidation in the lungs. No pleural effusion. IMPRESSION No acute cardiopulmonary findings. Dictated by... Eladio Padron M.D. THIS IS AN ELECTRONICALLY VERIFIED REPORT Eladio Padron M.D. at 06/07/2017 7:51 PM [facility] TD: 06/07/2017 18:40 JOB #: [id number] MEDICAL IMAGING REPORT Page 1 of 1
--- NOTE | ~2017-06-06 | HP ---
Unit #: [id number] #: [id number] Patient: SOPHIE WILL [id number] [address] [place], [place] [address] [id number] I MR#: [id number] NAME: SOPHIE WILL ROOM: 57 Age: 52 Sex: F Admission Date: 06/06/2017 : 1965 Attending Physician: Elliot Martin M.D. Primary Care Physician: ePma Torres M.D. HISTORY AND PHYSICAL CHIEF COMPLAINT "My mouth hurts, I'm having diarrhea, I'm having pelvic pain." HISTORY OF PRESENT ILLNESS Htpuu-quly-ybgz-old female, who was recently diagnosed with rectal cancer, currently under the care of Dr. Looney, undergoing chemoradiation. She has had seven cycles and she just completed her last cycle last 06/05/17, presented to the hospital with sores in her mouth with nausea and vomiting, and diarrhea. She has been having troubles on and off in conjunction with her chemoradiation treatments and she presented to the hospital because the pain was unbearable as well as diarrhea and her mouth pain. She denies any fever or rash at this time. She admits to some bleeding rectally in addition to her diarrhea. Other than that denies any abdominal pain. She denies any headache or blurred vision. REVIEW OF SYSTEMS Complete ten point review of systems has been done and are pertinent positive as noted. The patient is unsure of her chemotherapy regimen. She states that she feels miserable. PAST MEDICAL HISTORY Posttraumatic stress disorder and her cancer diagnosed in March 27, 2017. PAST SURGICAL HISTORY 1. Hysterectomy with hormone replacement. 2. Cholecystectomy. 3. Appendectomy. FAMILY HISTORY Sister had breast cancer. Mother had breast cancer at age 71. SOCIAL HISTORY Two pack a day smoker, . REVIEW OF SYSTEMS Ten point review of systems has been done and pertinent positives noted. PHYSICAL EXAMINATION GENERAL: She was comfortable and in mild distress secondary to pain. VITAL SIGNS: Blood pressure was 147/98, pulse 81, respiratory rate 16, temperature 99.0. HEENT: Pupils are equal and reactive to light and accommodation. NECK: Neck was supple without lymphadenopathy. No thyromegaly. She had Unit #: [id number] #: [id number] Patient: SOPHIE WILL mouth ulcers especially on her tongue, her check and buccal mucosa as well as the hard palate. Pharynx was mildly erythematous. CHEST: Decreased breath sounds in lung bases posteriorly, she had a port which had been accessed in her right upper chest wall. CARDIOVASCULAR SYSTEM: First and second heart sounds. ABDOMEN: Full, moves with respirations, soft, nontender. RECTAL EXAM: Deferred, however, she had some bruising of her right anterior groin. EXTREMITIES: Mild bilateral 1+ lower extremity edema. SKIN: Warm and dry. Bruising noted. PSYCHIATRIC ASSESSMENT: Limited evaluation at this time as the patient is in pain. CENTRAL NERVOUS SYSTEM: Alert and oriented x3, moves all limbs spontaneously, able to ambulate. DIAGNOSIS LABORATORY: Chemistries, pending at this time, but on admission glucose was 83, BUN and creatinine 10 and 0.6, serum potassium 136, and 3.5, albumin was 3.2, she had CBC with a hemoglobin and hematocrit of 9.3 and 27 with a white count of 8.4, platelet count 294. Urinalysis shows 1+ leukocyte esterase. ASSESSMENT/PLAN 1. Probably chemoradiation mucositis. Will add Venita's Magic mouth wash and Nystatin swish and swallow, (1) p.o. t.i.d. Check a CBC and BMP in the morning for rectal pain, she is started on morphine at this time and this seems to be insufficient, I will give her IV Dilaudid 2 mg times one now and then Dilaudid 1 mg every 3 to 4 hours, I will titrate this to at least control her pain level down to at least a 3 or a 4. 2. Anorectal cancer, status post chemoradiation treatment, currently under the care of Dr. Looney and he has been consulted. 3. GI prophylaxis, place her on Protonix 40 mg IV daily. For DVT prophylaxis put her on SCDs. I have currently deferred putting her on Lovenox at this time as she is currently having some rectal bleeding and I am concerned about exacerbating this situation. She is currently receiving IV fluids. Dictated by Lawrence Marie TD: 06/07/2017 09:49 JOB #: [id number] Unit #: [id number] #: [id number] Patient: SOPHIE WILL CALVIN HISTORY AND PHYSICAL Page 1 of 1 X Yadira Richey MD HISTORY AND PHYSICAL
[~2017-06-06 16:38] MED LIST changes: +DILAUDID4 MG PO
[2017-06-06 20:49] LABS: BASOPHIL% 0.3 % (0-2.5); EOSINOPHIL# 0.1 X10e3 (0-0.7); EOSINOPHIL% 0.7 % (0.0-7.0); HEMATOCRIT 30.7 % (35.0-45.0); HEMOGLOBIN 10.5 gm/dL (12.0-16.0); LYMPHOCYTE# 0.7 X10e3 (1.0-3.5); MEAN CELL VOLUME 96.3 FL (83-96); MEAN CORPUSCULAR HEMOGLOBIN 32.7 PG (28-34); MEAN PLATELET VOLUME 6.6 FL (6.5-11.5); MONOCYTE# 0.4 X10e3 (0-1.0); MONOCYTE% 4.1 % (3.0-12.0); NEUTROPHIL% 87.9 % (40-75); PLATELET COUNT 317 X10e3 (140-420); RED BLOOD COUNT 3.19 X10e (3.90-5.30); RED CELL DISTRIBUTION WIDTH 14.8 % (11.0-15.5); WHITE BLOOD COUNT 10.2 X10e3 (4.0-10.5)
[2017-06-06 20:50] LABS: DIFF IND NO
[2017-06-06 20:51] LABS: URINE APPEARANCE CLEAR; URINE BILIRUBIN NEG (NEG); URINE BLOOD TRACE-INTACT (NEG); URINE COLOR YELLOW; URINE GLUCOSE NEG (NORM); URINE KETONE NEG (NEG); URINE LEUKOCYTE ESTERASE 1+ (NEG); URINE NITRATE NEG (NEG); URINE PH 6.5 (5-8); URINE PROTEIN NEG (NEG); URINE UROBILINOGEN 0.2 MG/DL (NORM)
[2017-06-06 20:53] LABS: CULTURE INDICATED? NO; MICRO INDICATED? YES; URINE BACTERIA NEG (NEG); URINE SOURCE CLEAN CATCH; URINE SQUAMOUS EPITHELIAL CELL FEW /[HPF]; URINE TRANSITIONAL EPI CELLS FEW /[HPF]
[2017-06-06 21:05] LABS: ALBUMIN SERUM 3.2 g/dL (3.5-5.0); ALKALINE PHOSPHATASE 50 U/L (32-92); ALT (SGPT) 21 U/L (10-40); AST (SGOT) 16 U/L (10-42); BILIRUBIN,TOTAL 0.3 mg/dL (0.2-2.0); BLOOD UREA NITROGEN 10 mg/dL (9-23); BUN/CREATININE RATIO 16.66; CALCIUM SERUM 8.4 mg/dL (8.4-10.2); CARBON DIOXIDE 25 mmol/L (22-31); CHLORIDE 103 mmol/L (100-111); CREATININE SERUM 0.6 mg/dL (0.6-1.4); GLOM FILT RATE Estimated 103.3 mL/min (>60); GLUCOSE FASTING 83 mg/dL (70-110); POTASSIUM 3.5 mmol/L (3.5-5.1); PROTEIN TOTAL SERUM 6.2 g/dL (6.0-8.3); SODIUM 136 mmol/L (135-145)
[2017-06-06 21:07] LABS: BILIRUBIN, DIRECT <0.1 mg/dL (0.0-0.2); BILIRUBIN,INDIRECT 0.2 mg/dL (0.0-0.9)
[2017-06-07 06:26] LABS: HEMATOCRIT 27.8 % (35.0-45.0); HEMOGLOBIN 9.3 gm/dL (12.0-16.0); MEAN CELL VOLUME 96.7 FL (83-96); MEAN CORPUSCULAR HEMOGLOBIN 32.4 PG (28-34); MEAN CORPUSCULAR HGB CONC 33.5 g/dL (30-36); MEAN PLATELET VOLUME 6.3 FL (6.5-11.5); RED BLOOD COUNT 2.88 X10e (3.90-5.30); RED CELL DISTRIBUTION WIDTH 14.4 % (11.0-15.5); WHITE BLOOD COUNT 8.4 X10e3 (4.0-10.5)
[2017-06-07 07:04] LABS: ALBUMIN SERUM 2.6 g/dL (3.5-5.0); BILIRUBIN,TOTAL 0.2 mg/dL (0.2-2.0); BUN/CREATININE RATIO 14.28; CALCIUM SERUM 7.6 mg/dL (8.4-10.2); CREATININE SERUM 0.7 mg/dL (0.6-1.4); GLOM FILT RATE Estimated 98.2 mL/min (>60); POTASSIUM 3.6 mmol/L (3.5-5.1)
[2017-06-08 05:18] LABS: HEMATOCRIT 28.1 % (35.0-45.0); HEMOGLOBIN 9.5 gm/dL (12.0-16.0); MEAN PLATELET VOLUME 6.6 FL (6.5-11.5); RED BLOOD COUNT 2.89 X10e (3.90-5.30); RED CELL DISTRIBUTION WIDTH 14.7 % (11.0-15.5); WHITE BLOOD COUNT 9.2 X10e3 (4.0-10.5)
[2017-06-08 06:21] LABS: ALBUMIN SERUM 2.9 g/dL (3.5-5.0); BILIRUBIN,TOTAL 0.3 mg/dL (0.2-2.0); BUN/CREATININE RATIO 11.25; CALCIUM SERUM 8.4 mg/dL (8.4-10.2); CREATININE SERUM 0.8 mg/dL (0.6-1.4); GLOM FILT RATE Estimated 83.7 mL/min (>60); POTASSIUM 4.4 mmol/L (3.5-5.1); PROTEIN TOTAL SERUM 5.3 g/dL (6.0-8.3)
[2017-06-08 06:40] LABS: FERRITIN 111 ng/mL (11-307)
[2017-06-09 05:11] LABS: HEMOGLOBIN 9.5 gm/dL (12.0-16.0); MEAN CELL VOLUME 96.5 FL (83-96); MEAN CORPUSCULAR HEMOGLOBIN 32.7 PG (28-34); MEAN CORPUSCULAR HGB CONC 33.8 g/dL (30-36); MEAN PLATELET VOLUME 6.5 FL (6.5-11.5); RED BLOOD COUNT 2.9 X10e (3.90-5.30); RED CELL DISTRIBUTION WIDTH 14.8 % (11.0-15.5); WHITE BLOOD COUNT 6.8 X10e3 (4.0-10.5)
[2017-06-09 06:16] LABS: BUN/CREATININE RATIO 11.25; CALCIUM SERUM 7.5 mg/dL (8.4-10.2); CREATININE SERUM 0.8 mg/dL (0.6-1.4); GLOM FILT RATE Estimated 83.7 mL/min (>60); POTASSIUM 3.9 mmol/L (3.5-5.1)
[2017-06-09] MEDS ORDERED: ACETAMINOPHEN PO (13:59)
[2017-06-09] MEDS ORDERED: NILSTAT PO (14:12)
== END 2017-06-09 15:50 | disposition home or self-care (01) | DRG 392 ==
LOC: SED 16:38 → CEDOF 22:11 → SED 22:11 → CEDOF 06-07 00:03 → C5C 06-07 00:03 → CEDOF 06-07 00:50 → C5C 06-07 00:50
PROVIDERS: Emergency Medicine; Family Medicine; Internal Medicine; Internal Medicine Hematology
DX: R10.9 Unspecified abdominal pain (principal); R19.7 Diarrhea, unspecified; R11.2 Nausea with vomiting, unspecified; C20 Malignant neoplasm of rectum; C21.0 Malignant neoplasm of anus, unspecified; R62.7 Adult failure to thrive; E46 Unspecified protein-calorie malnutrition; D64.9 Anemia, unspecified; F41.9 Anxiety disorder, unspecified; F32.9 Major depressive disorder, single episode, unspecified; G47.00 Insomnia, unspecified
CPT/HCPCS: 36415; 71010; 80048; 80053; 80076; 81003; 82607; 82728; 83540; 83550; 83605; 85025; 85027; 87040; 96361; 96374; 96375; 96376; 99285; C9113; G0378; J1170; J2270; J2405; J2550

== ENCOUNTER → 2017-06-18 | Outpatient (CLI) | payer OTHER ==
[~2017-06-18] MED LIST changes: +ACETAMINOPHEN PO; +NILSTAT PO
--- NOTE | ~2017-06-18 | CT55 ---
[facility] A Service [facility] RADIOLOGY TEXT RESULTS PATIENT: SOPHIE WILL LOCATION: [facility] : 61 UNIT #: [id number] AGE: [address]: Tyrone Looney MD SEX: F ORDER DR: [id number] [place] [id number] [facility]. [place], [place] [address] [id number] MR#: [id number] Acc #: [id number] NAME: SOPHIE WILL : 1965 SEX: F STUDY DATE/TIME: 06/18/2017 15:06 UNIT: [facility] ROOM: STUDY DESCRIPTION: CT Chest W Con Attending Physician: Tyrone Looney M.D. Referring Physician: Tyrone Looney M.D. Ordering Physician: Tyrone Looney M.D. Primary Care Physician: Pema Torres M.D. MEDICAL IMAGING REPORT This report is preliminary unless electronic signature is present EXAMINATION CT chest with contrast. DATE 06/18/2017 HISTORY Rectal cancer with metastatic disease to the lymph nodes. Last chemotherapy and radiation therapy treatments completed last week. Previous appendectomy, hysterectomy, cholecystectomy. Occasional shortness of breath for the past few months. Observation for metastatic disease. Restaging. COMPARISON PET/CT 04/13/2017. PROCEDURE 5 mm axial images through the chest after intravenous contrast administration. Sagittal and coronal reformatted images were obtained. This CT exam was performed with one or more of the following radiation dose reduction techniques: automatic exposure control, adjustment of mA and/or kV according to patient size, and iterative reconstruction. FINDINGS Previously described ground-glass 1-cm nodular opacity in the right lower lobe medially on the PET/CT from 04/13/2017 has completely resolved. There is mild bronchial wall thickening and partial bronchial and bronchiolar opacification bilateral lower lobe suggesting small airways infectious-inflammatory process. However, no dense lung consolidations are identified. Moderate emphysematous changes are present. Reticular interstitial [facility] A Service [facility] RADIOLOGY TEXT RESULTS PATIENT: SOPHIE WILL LOCATION: [facility] #: [id number] : [birth year] UNIT #: [id number] AGE: [address]: Tyrone Looney MD SEX: F ORDER DR: thickening is present within both lungs peripherally, greatest in the right upper lobe, favored to represent mild interstitial fibrosis. Faint ground-glass opacities are present peripherally, again predominately in the same distribution of the interstitial thickening, also favored to represent sequelae of interstitial fibrosis. No new or suspicious pulmonary nodules are identified. Incidental note is made of a calcified granuloma in the left lower lobe. A few mildly prominent mediastinal lymph nodes are present, which appear stable to slightly smaller on the previous exam. A right lower paratracheal - precarinal node measures 1.4 x 0.7 cm compared to 1.8 x 1.2 cm previously. And AP window node measures 1.8 x 1.2 cm compared to a 2.4 x 1.8 cm previously. Subcarinal node measures 1 cm in short axis compared to 1.2 cm short axis previously. No new adenopathy is seen. There is no pericardial effusion. There is no pleural effusion. No pneumothorax. No supraclavicular, axillary adenopathy. Right chest wall Qpez-D-Ztnniuye extends to the SVC. Cholecystectomy changes are present. The included upper abdominal organs are within normal limits. No suspicious osteolytic or osteoblastic lesions are identified. IMPRESSION 1. Previously described mediastinal lymph nodes measure slightly smaller than on the 04/13/2017. This could represent improvement in benign lymph nodes with reactive features on the previous study, or could represent a rachel metastatic disease which has had interval response to therapy. No new adenopathy is seen. 2. Previously described 1 cm ground-glass nodule in the right lower lobe has completely resolved. No new or suspicious pulmonary nodules are identified. 3. Moderate emphysema. The features of peripheral interstitial fibrosis within the bilateral lungs, greatest in the right upper lobe. No acute-appearing airspace disease changes. 4. Cholecystectomy. 5. No evidence of osseous metastatic disease in the chest. Dictated by... Giovana Banks M.D. THIS IS AN ELECTRONICALLY VERIFIED REPORT Giovana Banks M.D. at 06/24/2017 3:26 PM LLZachary/jose TD: 06/19/2017 20:59 [facility] A Service of [facility] RADIOLOGY TEXT RESULTS PATIENT: SOPHIE WILL LOCATION: [facility] : 61 UNIT #: [id number] AGE: [address]: Tyrone Looney MD SEX: F ORDER DR: JOB #: [id number] MEDICAL IMAGING REPORT Page 1 of 1 COPY
== END | disposition home or self-care (01) ==
LOC: CCAT 14:38
DX: C21.1 Malignant neoplasm of anal canal (principal); K12.31 Oral mucositis (ulcerative) due to antineoplastic therapy; R11.2 Nausea with vomiting, unspecified; E86.0 Dehydration; J43.9 Emphysema, unspecified; Z90.49 Acquired absence of other specified parts of digestive tract
CPT/HCPCS: 71260; Q9967

== ENCOUNTER 2017-06-21 15:19 | Emergency (ER) | payer OTHER ==
[~2017-06-21] VITALS: Ht 160 cm; Wt 45.4 kg
[2017-06-21 16:45] LABS: URINE SOURCE CLEAN CATCH
[2017-06-21 16:50] LABS: URINE APPEARANCE CLEAR; URINE BILIRUBIN NEG (NEG); URINE BLOOD NEG (NEG); URINE COLOR YELLOW; URINE GLUCOSE NEG (NEG); URINE KETONE NEG (NEG); URINE LEUKOCYTE ESTERASE TRACE (NEG); URINE NITRATE NEG (NEG); URINE PH 6.5 (5-8); URINE PROTEIN NEG (NEG); URINE SPECIFIC GRAVITY 1.004 (1.003-1.035); URINE UROBILINOGEN 0.2 MG/DL (NEG)
[2017-06-21 16:51] LABS: BASOPHIL% 1.1 % (0-2.5); EOSINOPHIL# 0.3 X10e3 (0-0.7); EOSINOPHIL% 6.8 % (0.0-7.0); HEMATOCRIT 30.2 % (35.0-45.0); HEMOGLOBIN 10.4 gm/dL (12.0-16.0); LYMPHOCYTE# 1.1 X10e3 (1.0-3.5); LYMPHOCYTE% 25.9 % (17.0-45.0); MEAN CORPUSCULAR HEMOGLOBIN 33.4 PG (28-34); MEAN CORPUSCULAR HGB CONC 34.4 g/dL (30-36); MONOCYTE# 0.6 X10e3 (0-1.0); MONOCYTE% 12.8 % (3.0-12.0); NEUTROPHIL# 2.3 X10e3 (1.5-7.1); NEUTROPHIL% 53.4 % (40-75); PLATELET COUNT 291 X10e3 (140-420); RED BLOOD COUNT 3.11 X10e (3.90-5.30); WHITE BLOOD COUNT 4.3 X10e3 (4.0-10.5)
[2017-06-21 16:52] LABS: URBCS1 AUWI 0-2 /[HPF] (0-2); URINE BACTERIA AUWI NEG (NEGATIVE); URINE SQUAMOUS EPITHELIAL CELL NONE SEEN /[HPF]
[2017-06-21 16:58] LABS: DIFF IND NO
[2017-06-21 17:02] LABS: CULTURE INDICATED? NO
[2017-06-21 17:20] LABS: ALBUMIN SERUM 2.9 g/dL (3.5-5.0); ALKALINE PHOSPHATASE 57 U/L (32-92); ALT (SGPT) 14 U/L (10-40); AMYLASE 19 U/L (0-46); AST (SGOT) 19 U/L (10-42); BILIRUBIN, DIRECT <0.1 mg/dL (0.0-0.2); BILIRUBIN,INDIRECT 0.2 mg/dL (0.0-0.9); BILIRUBIN,TOTAL 0.3 mg/dL (0.2-2.0); BLOOD UREA NITROGEN 5 mg/dL (9-23); BUN/CREATININE RATIO 8.33; CALCIUM SERUM 8.6 mg/dL (8.4-10.2); CARBON DIOXIDE 25 mmol/L (22-31); CHLORIDE 108 mmol/L (100-111); CREATININE SERUM 0.6 mg/dL (0.6-1.4); GLOM FILT RATE Estimated 103.3 mL/min (>60); GLUCOSE FASTING 94 mg/dL (70-110); LIPASE 22 U/L (22-51); POTASSIUM 3.6 mmol/L (3.5-5.1); PROTEIN TOTAL SERUM 5.6 g/dL (6.0-8.3); SODIUM 140 mmol/L (135-145)
== END 2017-06-21 18:45 | disposition home or self-care (01) ==
LOC: CED 15:19
PROVIDERS: Emergency Medicine
DX: R11.2 Nausea with vomiting, unspecified (principal); G89.29 Other chronic pain; C20 Malignant neoplasm of rectum; Z90.710 Acquired absence of both cervix and uterus; Z90.49 Acquired absence of other specified parts of digestive tract; Z90.89 Acquired absence of other organs; Z79.899 Other long term (current) drug therapy; Z88.8 Allergy status to other drugs, medicaments and biological substances
CPT/HCPCS: 36415; 80048; 80076; 81003; 82150; 83690; 85025; 96361; 96374; 96375; 99284; J1170; J2405; J2550

== ENCOUNTER 2017-06-27 17:06 | Emergency (ER) | payer OTHER ==
[~2017-06-27] VITALS: Ht 160 cm; Wt 45.4 kg
--- NOTE | ~2017-06-27 | CT71 ---
[facility] A Service of [facility] RADIOLOGY TEXT RESULTS PATIENT: SOPHIE WILL LOCATION: SED : 61 UNIT #: [id number] AGE: [address]: Jessica Deleon MD SEX: F ORDER DR: [id number] [place] [id number] E MR#: [id number] Acc #: [id number] NAME: SOPHIE WILL : 1965 SEX: F STUDY DATE/TIME: 06/27/2017 18:27 UNIT: SED ROOM: STUDY DESCRIPTION: CT Head Wo Contrast Attending Physician: Jessica Deleon M.D. Ordering Physician: Jessica Deleon M.D. Primary Care Physician: Pema Torres M.D. MEDICAL IMAGING REPORT This report is preliminary unless electronic signature is present. EXAM Head CT no contrast 06/27/2017 INDICATION 52-year-old female with headache and neck pain and vomiting for a day. Stage 3 rectal cancer. TECHNIQUE Noncontrast CT of the brain was performed. Comparison 07/23/2014. This CT examination was performed with one or more of the following radiation dose reduction techniques: automatic exposure control, adjustment of mA and/or kV according to patient size, and iterative reconstruction. FINDINGS Sulci and ventricles unremarkable. No midline shift. No evidence of acute intracranial hemorrhage. There is no mass, mass effect or edema to suggest acute infarct. No extraaxial fluid collection identified. Globes intact. Bones intact. Sinuses clear. IMPRESSION Negative noncontrast CT of the brain. Dictated by... Akshat Alejo M.D. THIS IS AN ELECTRONICALLY VERIFIED REPORT Akshat Alejo M.D. at 06/28/2017 11:29 PM CHARISSE/treasure TD: 06/28/2017 10:07 [facility] A Service of [facility] RADIOLOGY TEXT RESULTS PATIENT: SOPHIE WILL LOCATION: SED : 61 UNIT #: [id number] AGE: [address]: Jessica Deleon MD SEX: F ORDER DR: JOB #: [id number] MEDICAL IMAGING REPORT Page 1 of 1
[2017-06-27 18:00] LABS: BASOPHIL# 0.1 X10e3 (0-0.3); BASOPHIL% 1.2 % (0-2.5); EOSINOPHIL# 0.2 X10e3 (0-0.7); HEMATOCRIT 33.9 % (35.0-45.0); HEMOGLOBIN 11.4 gm/dL (12.0-16.0); LYMPHOCYTE# 1.7 X10e3 (1.0-3.5); LYMPHOCYTE% 33.7 % (17.0-45.0); MEAN CELL VOLUME 96.8 FL (83-96); MEAN CORPUSCULAR HEMOGLOBIN 32.6 PG (28-34); MEAN CORPUSCULAR HGB CONC 33.7 g/dL (30-36); MEAN PLATELET VOLUME 6.6 FL (6.5-11.5); MONOCYTE# 0.5 X10e3 (0-1.0); MONOCYTE% 10.5 % (3.0-12.0); NEUTROPHIL# 2.6 X10e3 (1.5-7.1); NEUTROPHIL% 50.6 % (40-75); PLATELET COUNT 333 X10e3 (140-420); RED CELL DISTRIBUTION WIDTH 16.1 % (11.0-15.5); WHITE BLOOD COUNT 5.1 X10e3 (4.0-10.5)
[2017-06-27 18:01] LABS: DIFF IND NO
[2017-06-27 18:10] LABS: INR 0.9; PROTHROMBIN TIME (PATIENT) 10.7 SECONDS (9.5-12.4)
[2017-06-27 18:17] LABS: PARTIAL THROMBOPLASTIN TIME 20.4 SECONDS (25.6-38.1)
[2017-06-27 18:19] LABS: ALBUMIN SERUM 3.3 g/dL (3.5-5.0); ALKALINE PHOSPHATASE 56 U/L (32-92); ALT (SGPT) 14 U/L (10-40); AST (SGOT) 21 U/L (10-42); BILIRUBIN, DIRECT 0.1 mg/dL (0.0-0.2); BILIRUBIN,TOTAL <0.1 mg/dL (0.2-2.0); BLOOD UREA NITROGEN 7 mg/dL (9-23); CALCIUM SERUM 8.4 mg/dL (8.4-10.2); CARBON DIOXIDE 25 mmol/L (22-31); CHLORIDE 105 mmol/L (100-111); CREATININE SERUM 0.7 mg/dL (0.6-1.4); GLOM FILT RATE Estimated 98.2 mL/min (>60); GLUCOSE FASTING 68 mg/dL (70-110); POTASSIUM 3.8 mmol/L (3.5-5.1); PROTEIN TOTAL SERUM 6.4 g/dL (6.0-8.3); SODIUM 136 mmol/L (135-145)
== END 2017-06-27 19:43 | disposition home or self-care (01) ==
LOC: SED 17:06
PROVIDERS: Student in an Organized Health Care Education/Training Program
DX: R51 Headache (principal); R11.2 Nausea with vomiting, unspecified; Z90.49 Acquired absence of other specified parts of digestive tract; Z90.710 Acquired absence of both cervix and uterus; Z88.8 Allergy status to other drugs, medicaments and biological substances
CPT/HCPCS: 36415; 70450; 80048; 80076; 85025; 85610; 85730; 96361; 96374; 96375; 99284; J1100; J1170; J1200; J2550

== ENCOUNTER 2017-06-28 14:48 | Inpatient (IN) | payer OTHER ==
[~2017-06-28] VITALS: Ht 160 cm; Wt 50.6 kg
--- NOTE | ~2017-06-28 | OR ---
Unit #: [id number] #: [id number] Patient: SOPHIE ARREOLA [id number] [address] [place], [place] [address] [id number] Luis A MR#: [id number] NAME: SOPHIE ARREOLA ROOM: 472 Date of Procedure: 07/01/2017 Admission Date: 06/28/2017 Surgeon: Carlton Michaels M.D. : 1965 Attending Physician: Jabari Hampton M.D. Primary Care Physician: Pema Torres M.D. OPERATIVE REPORT MEDICAL ONCOLOGIST Tyrone Looney M.D. PREOPERATIVE DIAGNOSIS History of anal cancer. POSTOPERATIVE DIAGNOSIS History of anal cancer. PROCEDURE PERFORMED Colonoscopy to cecum with biopsy of the anal verge. ANESTHESIA Monitored anesthesia. INDICATION Ms. Arreola is a 52-year-old female, previously diagnosed with anal cancer, who has completed chemo and radiation therapy. She was sent by Medical Oncology for re-evaluation by endoscopy. She is complaining of abdominal discomfort. Her last chemo or radiation treatment was 2 weeks ago. DESCRIPTION OF PROCEDURE The patient was transported from her hospital room to the endoscopy suite. After appropriate monitoring and positioning, she was sedated by the nurse door cutter. On digital examination of the anal verge, no mass or ulceration was noted. On digital examination between 5 and 7 o'clock of the exam, there was some mild induration. The rest of the digital examination was unremarkable. Colonoscope was passed through the anal verge throughout the extent of the colon to the cecum. On antegrade and retrograde visualization, no abnormalities were noted throughout the colon or upper rectum. When I reached the rectal vault, I retroflexed the scope and again could not visualize a mass or area of ulceration of concern. I palpated under direct vision the area where I could feel the induration and this area was biopsied using cold biopsy forceps. The rest of the examination was unremarkable. The patient tolerated the procedure well and was transported to recovery in stable condition. Findings were discussed with her family. We will await the biopsy report and I will discuss this with Dr. Looney. The patient reportedly has had a PET scan recently. Dictated by... Unit #: [id number] #: [id number] Patient: SOPHIE ARREOLA M.D. RS/molly TD: 07/02/2017 02:52 JOB #: [id number] OPERATIVE REPORT Page 1 of 1 X Carlton Michaels MD PROCEDURE OPERATIVE NOTE
--- NOTE | ~2017-06-28 | HP ---
Unit #: [id number] #: [id number] Patient: SOPHIE WILL [id number] [address] [address] [id number] I MR#: [id number] NAME: SOPHIE WILL ROOM: 472 Age: 52 Sex: F Admission Date: 06/28/2017 : 1965 Attending Physician: Jabari Hampton M.D. Primary Care Physician: Pema Torres M.D. HISTORY AND PHYSICAL CHIEF COMPLAINT Intractable nausea and vomiting with intractable rectal pain. HISTORY OF PRESENT ILLNESS This pleasant 52-year-old female diagnosed with rectal cancer in March, being treated by Dr. Looney, status post chemoradiation, was transferred from [facility] Emergency Department for intractable nausea, vomiting, and rectal pain. The patient developed nonbloody nausea and vomiting yesterday. She has chronic diarrhea which is unchanged. She does note some epigastric discomfort with the nausea and vomiting. Unfortunately, has been unable to keep down her usual pain medicines. Developed worsening/intractable rectal pain today, and went to [facility] ER. Her vital signs are stable. She was bolused with IV fluids and given Dilaudid, Pepcid, Zofran, and Phenergan. It is starting to feel somewhat better in terms of the nausea. Denies eating anything out of the ordinary or ill contacts. Again, has chronic diarrhea which is unchanged. No fevers, sweats, or chills with the above. PAST MEDICAL HISTORY 1. Anal cancer diagnosed March 2017 with positive lymphadenopathy noted. Status post chemoradiation followed by Dr. Looney. 2. Admission in the past for oral mucositis due to chemotherapy. 3. Herpes zoster. 4. PTSD. 5. Depression. 6. Insomnia. 7. Hysterectomy with hormone replacement therapy. 8. Cholecystectomy. 9. Appendectomy. ALLERGIES Compazine and Imitrex. HOME MEDICATIONS 1. Estrace 2 mg daily. 2. Prozac 80 mg daily. 3. Dilaudid 8 mg q.4 hours. 4. Trazodone 200 mg at bedtime. FAMILY HISTORY Colon and breast cancer. Unit #: [id number] #: [id number] Patient: SOPHIE WILL SOCIAL HISTORY The patient lives with her . She smoked until March when she stopped smoking. Does not drink alcohol. REVIEW OF SYSTEMS Notable for rectal pain, nausea, vomiting, epigastric discomfort, mucositis, anal cancer, herpes zoster, PTSD, depression, hormone replacement therapy, insomnia, and above-mentioned surgeries. All other systems were reviewed and otherwise negative. PHYSICAL EXAMINATION GENERAL: A pleasant, thin, 52-year-old female currently in no acute distress. VITAL SIGNS: Temperature 98.5, pulse 89, respirations 16, blood pressure 147/77, and O2 saturation 97% on room air. HEENT: Eyes PERRLA. Extraocular muscles are intact. Pharynx is benign. NECK: Supple without adenopathy or thyromegaly. CHEST: Clear. CARDIAC: Normal S1 and S2 without murmur. There is a port in the right upper chest. ABDOMEN: Bowel sounds are present. No hepatosplenomegaly, tenderness, or masses. EXTREMITIES: Without clubbing, cyanosis, or edema. Pedal pulses are present. NEUROLOGIC: Patient is awake, alert, and oriented. Her cranial nerves are intact. She has equal strength throughout. DIAGNOSTIC STUDIES ADMISSION LABORATORY: Hematocrit is 32 which appears to be stable, MCV 97.5, normal white count and platelet count. SMA-12: Sodium 133, potassium 3.4, calcium 8.3, albumin is 3.3. Normal lipase. Urinalysis 1+ leukocyte esterase with 25-50 white cells and moderate squamous cells making this is a poor specimen. ASSESSMENT 1. Intractable nausea, vomiting, unable to keep down medications. 2. Intractable rectal pain due to anal CA, status post chemotherapy and radiation. 3. Posttraumatic stress disorder. 4. Hormone replacement therapy. 5. Pyuria but poor specimen. PLANS 1. IV fluids. 2. IV antiemetics and pain medicines for now. In the morning, will switch back to p.o. Dilaudid. Will also give H2 blockers. 3. Recheck UA, urine C and S. 4. SCDs for DVT prophylaxis. 5. Notify patient's oncologist of admission. 1. Dictated by Lucy Beth M.D. AML/am TD: 06/29/2017 08:11 JOB #: [id number] Unit #: [id number] #: [id number] Patient: SOPHIE WILL CC: Tyrone Looney M.D. HISTORY AND PHYSICAL Page 1 of 1 X Lucy Beth MD X HISTORY AND PHYSICAL
--- NOTE | ~2017-06-28 | DS ---
Unit #: [id number] #: [id number] Patient: SOPHIE WILL [id number] [address] [place], [place] [address] [id number] I MR#: [id number] NAME: SOPHIE WILL ROOM: 47 Age: 52 Sex: F Admission Date: 06/28/2017 : 1965 Discharge Date: 07/02/2017 Attending Physician: Jabari Hampton M.D. Primary Care Physician: Pema Torres M.D. DISCHARGE SUMMARY DISCHARGE DIAGNOSES 1. Gastroenteritis. 2. Urinary tract infection. 3. Rectal pain postchemotherapy and radiation. HOSPITAL COURSE The patient is a 52-year-old woman, who had been diagnosed with rectal cancer in March and had completed treatment with chemo and radiation with oncologist, Dr. Looney and presented with symptoms of nausea and vomiting along with rectal pain on 06/28/2017. During her admission, she received IV fluids for hydration, IV antiemetics. Her gastroenteritis was treated. No further nausea or vomiting. Her urinary tract infection was treated with Rocephin. Urine culture demonstrated no growth after 48 hours. Regarding her rectal pain, the patient underwent colonoscopy. Results of the colonoscopy were essentially normal and the pain over the rectal area grossly looked like scar tissue from the chemoradiation therapy. A biopsy was taken and the patient is to call on Thursday to [facility] office on 07/06/2017 for results of the pathology. The patient is to follow up with her oncologist as an outpatient. DISCHARGE MEDICATIONS Acetaminophen 650 mg p.o. q.6 hourly p.r.n. for pain, fluoxetine 80 mg p.o. daily, trazodone 200 mg p.o. at bedtime, Estrace 2 mg p.o. daily, hydromorphone 8 mg p.o. q.6 hourly p.r.n. for pain. DISCHARGE INSTRUCTIONS Follow up with oncologist, Dr. Looney as an outpatient. Call [facility] office for pathology results on 07/06/2017. Dictated by... Lawrence Canada/molly TD: 07/06/2017 03:25 JOB #: [id number] Unit #: [id number] #: [id number] Patient: SOPHIE WILLN DISCHARGE SUMMARY Page 1 of 1 X X DISCHARGE SUMMARY
--- NOTE | ~2017-06-28 | A ---
[facility] Nutrition Therapy DATE: 06/29/17 Patient: SOPHIE WILL Physician: ZACARIAS Address: [address] Room/Bed: [address] [place] [address], Zip: [place] [address] Admit Date: 06/28/17 Date of : [birth year] Height: 5 3 Weight: 99 45 NUTRITIONAL ASSESSMENT: REASON: Low BMI Admitting dx: 52 y/o female admitted with intractable N/V and rectal pain PMH: Rectal cancer (dx March 2017) s/p chemo, chronic diarrhea, mucositis, PTSD, depression, herpes, ila, appy, smoking hx (quit) Anthropometrics: Ht: 63", Wt: 99 lbs (pt confirms), BMI: 17 (underweight) Labs: Reviewed; nothing significant Meds: Zofran/phenergan prn I/O & Bowel function: BM 9/3 (diarrhea) Skin Integrity: Noted, nothing significant, no edema Estimated Nutrition Needs: Increased due to underweight status and cancer Assessment: Chart reviewed, events noted. See admitting dx and PMH as stated above. Patient has rectal cancer which was recently diagnosed in March of this year, s/p chemo/radiation. She lives with her . She has chronic diarrhea which is unchanged. CT of head showed nothing acute. She has a hx at [facility]. She is on a regular diet. Spoke with the patient and her at the bedside. Patient states she has been able to tolerate diet. reports UBW prior to March of this year to be approx. 115-120 lbs, which correlates to a 15-20 lb weight loss in 3 months (13% BW loss; severe). She is aware of her increased nutrient needs, stating she drinks Ensure at home. Suspect protein calorie malnutrition (severe). Pt asking for Ensure- will order. RD encouraged small, frequent meals and snacks. N/V now improved. See recs below. Dx: 1) Underweight/unintentional weight loss r/t cancer s/p chemo/radiation AEB BMI 18, 13% BW loss in 3 months. 2) Increased nutrient needs r/t increased metabolic demand AEB recent cancer dx. Intervention: Ensure TID Monitoring, Evaluation and Goals: 1. PO intake > 50% of meals with minimal c/o N/V. 2. Promote a gradual weight gain towards a healthy BMI range/prevent further unintentional [facility] Nutrition Therapy DATE: 06/29/17 Patient: SOPHIE WILL Physician: ZACARIAS Address: [address] Room/Bed: [address] [place] [address], Zip: [place] [address] Admit Date: 06/28/17 Date of : [birth year] Height: 5 3 Weight: 99 45 loss. Monitor: per protocol, criteria to determine if above goals met Recommendations: 1. Continue regular diet, encourage small/frequent meals and snacks. 2. RD ordering strawberry Ensure Enlive TID to promote weight gain and help meet increased nutrient needs. 3. Continue Zofran prn. 4. Please weigh q 3 days for monitoring purposes, as the patient is clinically underweight and has lost approx. 13% of her body weight in past 3 months (since cancer diagnosis). RD will follow Mild nutrition risk Respectfully, Paulette Guardado, SHRAVAN, LD [facility] cc: client file
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
[2017-06-28 17:13] LABS: BASOPHIL# 0.1 X10e3 (0-0.3); BASOPHIL% 0.5 % (0-2.5); EOSINOPHIL# 0.1 X10e3 (0-0.7); EOSINOPHIL% 0.9 % (0.0-7.0); HEMOGLOBIN 10.9 gm/dL (12.0-16.0); LYMPHOCYTE# 1.9 X10e3 (1.0-3.5); LYMPHOCYTE% 19.2 % (17.0-45.0); MEAN CELL VOLUME 97.5 FL (83-96); MEAN CORPUSCULAR HEMOGLOBIN 33.1 PG (28-34); MEAN CORPUSCULAR HGB CONC 33.9 g/dL (30-36); MEAN PLATELET VOLUME 6.6 FL (6.5-11.5); MONOCYTE# 0.9 X10e3 (0-1.0); MONOCYTE% 8.7 % (3.0-12.0); NEUTROPHIL# 7.2 X10e3 (1.5-7.1); NEUTROPHIL% 70.7 % (40-75); PLATELET COUNT 342 X10e3 (140-420); RED BLOOD COUNT 3.28 X10e (3.90-5.30); RED CELL DISTRIBUTION WIDTH 16.5 % (11.0-15.5)
[2017-06-28 17:16] LABS: DIFF IND NO; WHITE BLOOD COUNT 10.1 X10e3 (4.0-10.5)
[2017-06-28 17:17] LABS: URINE SOURCE CLEAN CATCH
[2017-06-28 17:19] LABS: URINE APPEARANCE CLEAR; URINE BILIRUBIN NEG (NEG); URINE BLOOD NEG (NEG); URINE COLOR YELLOW; URINE GLUCOSE NEG (NORM); URINE KETONE NEG (NEG); URINE LEUKOCYTE ESTERASE 1+ (NEG); URINE NITRATE NEG (NEG); URINE PROTEIN NEG (NEG); URINE SPECIFIC GRAVITY <=1.005 (1.003-1.035); URINE UROBILINOGEN 0.2 MG/DL (NORM)
[2017-06-28 17:22] LABS: MICRO INDICATED? YES
[2017-06-28 17:25] LABS: CULTURE INDICATED? YES; URINE BACTERIA NEG (NEG); URINE RBC NEG /[HPF] (0-2); URINE SQUAMOUS EPITHELIAL CELL MODERATE /[HPF]; URINE WBC 25-50 /[HPF] (0-5)
[2017-06-28 17:37] LABS: ALBUMIN SERUM 3.3 g/dL (3.5-5.0); ALKALINE PHOSPHATASE 57 U/L (32-92); ALT (SGPT) 13 U/L (10-40); AST (SGOT) 19 U/L (10-42); BILIRUBIN,TOTAL 0.5 mg/dL (0.2-2.0); BLOOD UREA NITROGEN 9 mg/dL (9-23); BUN/CREATININE RATIO 11.25; CALCIUM SERUM 8.3 mg/dL (8.4-10.2); CARBON DIOXIDE 24 mmol/L (22-31); CHLORIDE 103 mmol/L (100-111); CREATININE SERUM 0.8 mg/dL (0.6-1.4); GLOM FILT RATE Estimated 83.7 mL/min (>60); GLUCOSE FASTING 78 mg/dL (70-110); LIPASE 26 U/L (22-51); POTASSIUM 3.4 mmol/L (3.5-5.1); PROTEIN TOTAL SERUM 6.2 g/dL (6.0-8.3); SODIUM 133 mmol/L (135-145)
[2017-06-28 17:38] LABS: BILIRUBIN, DIRECT <0.1 mg/dL (0.0-0.2); BILIRUBIN,INDIRECT 0.4 mg/dL (0.0-0.9)
[2017-06-29 00:22] LABS: URINE SOURCE CLEAN CATCH
[2017-06-29 00:29] LABS: URINE APPEARANCE CLEAR; URINE BILIRUBIN NEG (NEG); URINE BLOOD NEG (NEG); URINE COLOR YELLOW; URINE GLUCOSE NEG (NEG); URINE KETONE NEG (NEG); URINE LEUKOCYTE ESTERASE TRACE (NEG); URINE NITRATE NEG (NEG); URINE PH 6.5 (5-8); URINE PROTEIN NEG (NEG); URINE SPECIFIC GRAVITY 1.004 (1.003-1.035); URINE UROBILINOGEN 0.2 MG/DL (NEG)
[2017-06-29 00:32] LABS: URBCS1 AUWI 0-2 /[HPF] (0-2); URINE BACTERIA AUWI NEG (NEGATIVE); URINE SQUAMOUS EPITHELIAL CELL NONE SEEN /[HPF]
[2017-06-29 00:35] LABS: CULTURE INDICATED? NO
[2017-06-29 02:57] LABS: BASOPHIL% 0.8 % (0-2.5); DIFF IND NO; EOSINOPHIL# 0.2 X10e3 (0-0.7); EOSINOPHIL% 3.5 % (0.0-7.0); HEMATOCRIT 30.1 % (35.0-45.0); HEMOGLOBIN 10.1 gm/dL (12.0-16.0); LYMPHOCYTE# 1.4 X10e3 (1.0-3.5); LYMPHOCYTE% 26.8 % (17.0-45.0); MEAN CELL VOLUME 98.6 FL (83-96); MEAN CORPUSCULAR HGB CONC 33.5 g/dL (30-36); MEAN PLATELET VOLUME 6.5 FL (6.5-11.5); MONOCYTE# 0.6 X10e3 (0-1.0); MONOCYTE% 12.1 % (3.0-12.0); NEUTROPHIL# 2.9 X10e3 (1.5-7.1); NEUTROPHIL% 56.8 % (40-75); PLATELET COUNT 307 X10e3 (140-420); RED BLOOD COUNT 3.05 X10e (3.90-5.30); RED CELL DISTRIBUTION WIDTH 16.9 % (11.0-15.5); WHITE BLOOD COUNT 5.2 X10e3 (4.0-10.5)
[2017-06-29 03:20] LABS: BUN/CREATININE RATIO 7.5; CALCIUM SERUM 8.4 mg/dL (8.4-10.2); CREATININE SERUM 0.8 mg/dL (0.6-1.4); GLOM FILT RATE Estimated 83.7 mL/min (>60); MAGNESIUM 2.2 mg/dL (1.6-3.0); POTASSIUM 4.6 mmol/L (3.5-5.1)
== END 2017-07-02 10:29 | disposition home or self-care (01) | DRG 392 ==
LOC: SED 14:48 → SEDOF 19:12 → C4C 19:12 → SED 23:00 → C4C 23:00 → SEDOF 23:00 → C4C 06-29 07:06
PROVIDERS: Emergency Medicine; Family Medicine; Specialist
PROC: 0DBQ8ZX Excision of Anus, Via Natural or Artificial Opening Endoscopic, Diagnostic (ICD-10-PCS; principal; 2017-07-01 07:30)
DX: K52.9 Noninfective gastroenteritis and colitis, unspecified (principal); C21.0 Malignant neoplasm of anus, unspecified; R11.2 Nausea with vomiting, unspecified; F32.9 Major depressive disorder, single episode, unspecified; N39.0 Urinary tract infection, site not specified; Z68.1 Body mass index [BMI] 19.9 or less, adult; F43.10 Post-traumatic stress disorder, unspecified; G89.3 Neoplasm related pain (acute) (chronic); Z90.710 Acquired absence of both cervix and uterus; Z90.49 Acquired absence of other specified parts of digestive tract; G47.00 Insomnia, unspecified; R63.6 Underweight
CPT/HCPCS: 80048; 80076; 81003; 82150; 83690; 83735; 85025; 87086; 88305; 96361; 96374; 96375; 96376; 99285; J0696; J1170; J1200; J2250; J2270; J2405; J2550